=== PATIENT | male | born 1950 | race Hispanic/Latino ===

== ENCOUNTER → 2020-04-12 | Day surgery (SDC) | payer MEDICARE, OTHER ==
[2020-04-09 09:48] LABS: BASOPHILS % 0.6 % (0.0-1.0); EOSINOPHILS # (AUTO) 0.2 (0.0-0.4); EOSINOPHILS % 2.5 % (0.0-6.0); HEMATOCRIT 42.7 % (38.2-49.6); HEMOGLOBIN 14.7 g/dL (14.0-18.0); LYMPHOCYTES % 27.3 % (18.0-39.1); MEAN CORPUSCULAR HEMOGLOBIN 30.2 pg (28-32); MEAN CORPUSCULAR HGB CONC 34.4 g/dL (31-35); MEAN CORPUSCULAR VOLUME 87.9 fL (81-99); MONOCYTES # (AUTO) 0.6 (0.2-0.8); MONOCYTES % 8.8 % (4.4-11.3); NEUTROPHILS # (AUTO) 4.3 (2.1-6.9); NEUTROPHILS % 60.5 % (38.7-80.0); PLATELET COUNT 162 x10e3/uL (140-360); RED BLOOD COUNT 4.86 x10e6/uL (4.3-5.7); RED CELL DISTRIBUTION WIDTH 12.5 % (11.7-14.4)
[2020-04-09 10:10] LABS: ALANINE AMINOTRANSFERASE 17 IU/L (0-55); ALBUMIN/GLOBULIN RATIO 1.5 (0.8-2.0); ALKALINE PHOSPHATASE 84 IU/L (40-150); ANION GAP 13.8 mmol/L (8-16); BLOOD UREA NITROGEN 10 mg/dL (7-26); BUN/CREATININE RATIO 10 (6-25); CALCIUM 8.7 mg/dL (8.4-10.2); CARBON DIOXIDE 25 mmol/L (22-29); CHLORIDE 107 mmol/L (98-107); EST GLOMERULAR FILTRATION RATE > 60 ML/MIN (60-); GLUCOSE 101 mg/dL (74-118); POTASSIUM 3.8 mmol/L (3.5-5.1); SODIUM 142 mmol/L (136-145)
[~2020-04-12] VITALS: Ht 172.7 cm; Wt 72.6 kg
[2020-04-12] VITALS (13 sets, daily range): BP systolic 103–167; BP diastolic 58–77
[~2020-04-12] MED LIST: ALPRAZOLAM 0.5 MG TAB ONE; ASPIRIN 325 MG TAB ONE; ASPIRIN81 MG PO; BIVALRIUDIN 250 MG/VIAL VIAL IV ONE; COLCRYS0.6 MG PO; DIPHENHYDRAMINE HCL 25 MG CAP ONE; FENTANYL CITRATE/PF 100MCG/2 ML INJ ONE; HEPARIN SOD/SOD CHLORIDE 2,000 ML ONE; IOPAMIDOL 370 MG/ML 200 ML INFUS..BTL INJ ONE; LIDOCAINE HCL 2% LOCAL 20 ML VIAL ONE; METOPROLOL SUCC25 MG PO; MIDAZOLAM HCL 2 MG/2 ML VIAL ONE; NAPROXEN250 MG PO; PLAVIX75 MG PO; PRASUGREL 10 MG TAB ONE; SODIUM CHLORIDE 0.9% 1000ML 1,000 ML ONE; SODIUM CHLORIDE 0.9% 50ML 50 ML ONE; VERAPAMIL HCL 2.5 MG/ML 2 ML VIAL ONE
--- NOTE | 2020-04-12 13:44 | NUR ---
1344pm RECEIVING NOTE [facility]............................................................... Bedside report received from Simon KENDALL. Identifierx2. Alert oriented and appropriate, PERRLA, respirations even and unlabored to room air. Pulses x4 extremities equal and strong. Pedal pulses PT/DP X4 and marked. Cap fill brisk < 3 sec. Rt tr band site No gross issues pain,pallor,pressure or dysrthmia. Ango max infusing. Skin warm and dry integrity appears D/I. IV 20g to left hand, presents healthy w/o s/s of infiltration or complaint. Abdomen soft and supple. pt offered toileting, denies need to urinate or defecate. No personal affects with patient. Family arrived for discharge instructions. Pt and family verbalizes understanding of POC. Currently w/o complaint of pain or need. ds/rn
--- NOTE | 2020-04-12 15:54 | Operative Report ---
DATE OF PROCEDURE: 04/12/2020 SURGEON: Xavier Portillo MD INDICATION: Coronary artery disease, staged intervention angina. PROCEDURES PERFORMED: 1. Ultrasound-guided access in the right radial artery with sheath placement. 2. Conscious sedation administration, hemodynamic neurological monitoring and recovery by lab nurse, RN, supervision by , 35 minutes. 3. Left heart catheterization, selective coronary angiography. 4. Stent placement in mid right coronary artery. 5. Deployment of right wrist TR band. COMPLICATIONS: None. BLOOD LOSS: Minimal. RECOMMENDATIONS: Dual antiplatelet therapy for life. DESCRIPTION OF PROCEDURE: Access obtained in the right radial artery using ultrasound guidance. A 5-Portuguese sheath was placed coagulation. The right coronary artery was cannulated using 5-Portuguese guiding catheter. A 90% stenosis of the mid right coronary artery was noted. The lesion was crossed using run-through wire. Primary stent 2.75 x 16 mm synergy stent deployed at 18 atmospheres excellent end result, less than 10% residual stenosis, LATRICIA-3 flow. No complications. LV end-diastolic pressure was normal. No gradient across the aortic valve was noted on pullback. Right wrist TR band applied, the patient discharged home same day. Xavier Portillo MD [facility] /[id number]
--- NOTE | 2020-04-12 16:00 | NUR ---
1600p RADIAL Compression removal: Initial Cuff volume 11 cc 1600p -1cc Removed No hematoma/bleeding noted with normal neurovascular function. 1615p -5cc Removed No hematoma/ bleeding noted with normal neurovascular function. 1630p -5cc Removed No hematoma/bleeding noted with normal neurovascular function. Air removal completed. Stasis achieved sterile 2x2,Tegaderm, Coban dressing No hematoma, bleeding noted with normal neurovascular function. Pt instructed on POC. Ds/Rn
--- NOTE | 2020-04-12 18:00 | NUR ---
1800pm [facility] DISCHARGE NURSING NOTE Pt meets DC criteria. RT TR band site assessed for s/s of complication and presecence of hematoma. Skin warm, dry, no discolor, and pulses present. IV removed from left hand. Distal tip appears intact. VS WNL. Pt denies pain, sob, or need at this time. Family at bedside Review of discharge paperwork and follow up instructions. verbalized understanding. Pt to wheelchair and transported to front of hospital. Transferred to private vehicle under own strength w/o incident with DC paperwork in hand. - minerva/rn
== END | disposition home or self-care (01) ==
LOC: CATH LAB 11:00
PROVIDERS: ATTEND Internal Medicine Interventional Cardiology
DX: I25.118 Atherosclerotic heart disease of native coronary artery with other forms of angina pectoris (principal); I25.2 Old myocardial infarction; I87.2 Venous insufficiency (chronic) (peripheral); Z01.812 Encounter for preprocedural laboratory examination; Z11.59 Encounter for screening for other viral diseases; Z79.02 Long term (current) use of antithrombotics/antiplatelets; Z79.82 Long term (current) use of aspirin
CPT/HCPCS: 36415; 76937; 80053; 85025; C1769; C1874; C9600; J0583; J2001; J2250; J3010; J7030; Q9967; U0002; 92928; 99152